=== PATIENT | male | born 1990 | race Hispanic/Latino ===

== ENCOUNTER 2024-06-08 10:40 | Emergency (ER) | payer SELFPAY ==
[~2024-06-08] VITALS: Ht 167.6 cm; Wt 68.0 kg
[2024-06-08 10:45] VITALS: PULSE 70; RESP 15; TEMP 98.8; O2SAT 100
[2024-06-08] MEDS: TETANUS/DIPHTHERIA TOX ADULT 0.5 ML SYR IM ONE (12:02)
[2024-06-08] MEDS ORDERED: LIDOCAINE 1% 10 ML MULTIDOSE VIAL IJ ONE ×2 (15:15)
[2024-06-08] MEDS ORDERED: CEPHALEXIN500 MG PO (18:01)
== END 2024-06-08 18:10 | disposition home or self-care (01) ==
LOC: ER 11:01
DX: S62.521B Displaced fracture of distal phalanx of right thumb, initial encounter for open fracture (principal); W23.2XXA Caught, crushed, jammed or pinched between a moving and stationary object, initial encounter; Y92.89 Other specified places as the place of occurrence of the external cause
CPT/HCPCS: 90714; 99283